=== PATIENT | male | born 1945 | race Caucasian/White ===

== ENCOUNTER → 2018-04-05 13:45 | Outpatient (CLI) | payer MEDICARE, OTHER, SELFPAY ==
--- NOTE | 2018-04-05 | DI.ECHO.S_ITS ---
[facility]---------+ [facility] +---------+ : : [address] : : : : [phone] : : : : Phone: [phone] +---------+ Echocardiogram Report + + :Name: LUIS ANTONIO BAGLEY Study Date: 04/05/2018 Height: 71 in : :[facility] Exam Location: [place] Weight: 284 lb : : Gender: Male BSA: 2.4 m2 : :: 1945 Age: 72 yrs BP: 122/78 mmHg: :Reason For Study: Aortic Stenosis : :Ordering Physician: Ora : :Ravinder Performed By: Yoana Moulton : :Referring: ORA HILL : + + Interpretation Summary The left ventricle is normal in size. The ejection fraction is estimated to be 65-70%. There has been no significant change in LVEF since the previous study. The right ventricle is normal in size and function. The aortic valve is moderately calcified. The peak aortic velocity is 3.55 m/sec. The aortic valve mean gradient is 32 mmHg. The calculated aortic valve area is 1.2 cm2. The peak aortic velocity on the previous exam was 3.7 m/sec. sev ratio: 0.28 There is moderate aortic stenosis. There has been no significant change since the previous study. There is mild to moderate aortic regurgitation. Compared to the prior echo study, there has been an increase in the severity of aortic regurgitation. Procedure: A two-dimensional transthoracic echocardiogram with color flow and Doppler was performed. The study quality was technically adequate. Comparison is made with the echocardiogram of 12/16/2017. Subcostal and suprasternal notch imaging were not obtained due to equiptment malfunction. The patient was in normal sinus rhythm during the exam. Left Ventricle: The left ventricle is normal in size. There is mild-moderate concentric left ventricular hypertrophy. Proximal septal thickening is noted. There is no echo evidence for significant left ventricular outflow tract obstruction. There is no thrombus. The ejection fraction is estimated to be 65-70%. There has been no significant change since the previous study. There are no focal wall motion abnormalities. MV E/A: 0.74 Med Peak E' Bernardo: 4.7 cm/sec E/E' med: 11.7. Diastolic parameters suggest a relaxation abnormality of the left ventricle, consistent with probable normal filling pressures. Right Ventricle: The right ventricle is normal in size and function. Atria: The left atrium is moderately dilated. The right atrium is normal in size. The interatrial septum is intact with no evidence for an atrial septal defect. Mitral Valve: There is mild mitral annular calcification. There is no mitral valve stenosis. There is trace mitral regurgitation. Aortic Valve: The aortic valve is moderately calcified. Leaflet mobility is moderately reduced. The aortic valve is trileaflet. The calculated aortic valve area is 1.2 cm2. The peak aortic velocity is 3.55 m/sec. The aortic valve mean gradient is 32 mmHg. The peak aortic velocity on the previous exam was 3.7 m/sec. There is moderate aortic stenosis. There has been no significant change since the previous study. There is mild to moderate aortic regurgitation. Compared to the prior echo study, there has been an increase in the severity of aortic regurgitation. Tricuspid Valve: The tricuspid valve is normal in structure and function. Pulmonary artery pressures cannot be estimated because of the lack of a measurable TR jet velocity. There is trace tricuspid regurgitation. Pulmonic Valve: The pulmonic valve is not well seen, but is grossly normal. There is trace pulmonic regurgitation. Great Vessels: The aortic root is moderately dilated. This is unchanged compared to the previous study. The ascending aorta is mild-moderately enlarged. There has been no significant change since the previous study. The inferior vena cava was not visualized. Pericardium/ Pleura There is no pericardial effusion. There is an anterior echo-free space consistent with a fat pad. There is no pleural effusion. MMode/2D Measurements & Calculations LVIDd: 5.0 cm LVOT diam: 2.3 cm LVIDs: 3.0 cm Ao root diam: 4.8 cm FS: 41.0 % asc Aorta Diam: 4.2 cm IVSd: 1.7 cm LVPWd: 1.6 cm LV kinsey. diameter/BSA (cm/m^2): 2.0 LV sys. diameter/BSA (cm/m^2): 1.2 LA A2 area: 25.7 cm2 RA long axis: 5.6 cm LA A4 area: 24.2 cm2 RA area: 13.8 cm2 LA length (vol): 5.5 cm RA vol: 28.9 ml LA vol: 96.0 ml RA : 11.8 ml/m2 LA vol index: 39.2 ml/m2 TAPSE: 2.4 cm Doppler Measurements & Calculations Ao V2 max: 355.7 cm/sec LVOT Max Bernardo: 101.9 cm/sec Ao V2 mean: 275.7 cm/sec LV V1 max P.1 mmHg Ao max P.6 mmHg LV V1 VTI: 22.7 cm Ao mean P.3 mmHg LUZMARIA(I,D): 1.2 cm2 Ao V2 VTI: 81.6 cm LUZMARIA(V,D): 1.2 cm2 sev ratio: 0.28 LUZMARIA indexed to BSA (cm^2/m^2): 0.47 AI P1/2t: 406.1 msec AI dec slope: 325.3 cm/sec2 MV E max bernardo: 55.6 cm/sec MV A max bernardo: 75.2 cm/sec MV E/A: 0.74 Med Peak E' Bernardo: 4.7 cm/sec E/E' med: 11.7 Lat Peak E' Bernardo: 6.5 cm/sec E/E' lat: 8.5 E/e' average: 10.1 MV dec time: 0.17 sec Reading Physician:BEBA
== END ==
PROVIDERS: Visit Provider Internal Medicine Cardiovascular Disease
DX: I35.2 Nonrheumatic aortic (valve) stenosis with insufficiency (principal)
CPT/HCPCS: 93306

== ENCOUNTER → 2021-04-08 14:55 | Outpatient (CLI) | payer MEDICARE, OTHER, SELFPAY ==
--- NOTE | 2021-04-08 14:58 | DI.ECHO.S_ITS ---
[facility]---------+ [facility] +---------+ : : [address] : : : : [phone] : : : : Phone: [phone] +---------+ Echocardiogram Report + + :Name: LUIS ANTONIO BAGLEY Study Date: 04/08/2021 Height: 73 in : :[facility] ReadingLocation: Weight: 282 lb : : Gender: Male BSA: 2.5 m2 : :: 1945 Age: 75 yrs BP: 127/73 mmHg: :Reason For Study: AORTIC STENOSIS : :Ordering Physician: LIZ, : :ORA Performed By: Ceci Saab : :Referring: ORA HILL : + + Interpretation Summary The left ventricle is normal in size. The ejection fraction is estimated to be 60-65%. The right ventricle is normal in size and function. The aortic valve is severely calcified. There is moderate to severely reduced leaflet mobility. The peak aortic velocity is 4.17 m/sec. The aortic valve mean gradient is 39.5 mmHg. The calculated aortic valve area is 1.1 cm2. The peak aortic velocity on the previous exam was 3.89 m/sec. sev ratio: 0.22 There is moderate to severe aortic stenosis. Compared to the prior echo study, there has been an increase in the severity of aortic stenosis. There is mild to moderate aortic regurgitation. Compared to the prior echo study, there has been an increase in the severity of aortic regurgitation. The aortic root is mildly dilated. The ascending aorta is mildly enlarged. 3.9 cm in diameter. Previously 4.0 cm. Procedure: A two-dimensional transthoracic echocardiogram with color flow and Doppler was performed. The study quality was technically adequate. Comparison is made with the echocardiogram of 12/12/2019. The patient was in 74-85 during the exam. The patient was in normal sinus rhythm during the exam. Left Ventricle: The left ventricle is normal in size. There is mild concentric left ventricular hypertrophy. There is no thrombus. The ejection fraction is estimated to be 60-65%. There are no focal wall motion abnormalities. Diastolic parameters suggest a relaxation abnormality of the left ventricle, consistent with probable normal filling pressures. Right Ventricle: The right ventricle is normal in size and function. Atria: The left atrium is mildly dilated. The left atrium has mildly decreased in size since the prior echo exam. Right atrial size is normal. There is no Doppler evidence for an interatrial shunt. Mitral Valve: The mitral valve leaflets appear mildly thickened, but open well. There is mild mitral annular calcification. The mitral valve chordae are thickened and/or calcified. There is trace mitral regurgitation. Aortic Valve: There is moderate to severely reduced leaflet mobility. The aortic valve is severely calcified. There is moderate to severe aortic stenosis. The peak aortic velocity is 4.17 m/sec. The aortic valve mean gradient is 39.5 mmHg. The calculated aortic valve area is 1.1 cm2. The peak aortic velocity on the previous exam was 3.89 m/sec. Compared to the prior echo study, there has been an increase in the severity of aortic stenosis. There is mild to moderate aortic regurgitation. Compared to the prior echo study, there has been an increase in the severity of aortic regurgitation. Tricuspid Valve: There is tricuspid annular calcification. There is trace tricuspid regurgitation. Pulmonary artery pressures cannot be estimated because of the lack of a measurable TR jet velocity. Pulmonic Valve: The pulmonic valve leaflets are thin and pliable; valve motion is normal. There is trace pulmonic regurgitation. Great Vessels: The aortic root is mildly dilated. The ascending aorta is mildly enlarged. The IVC is of normal diameter and collapses greater than 50% with a sniff. This suggests a low right atrial pressure of 3 mm Hg. Pericardium/ Pleura There is no pericardial effusion. There is no pleural effusion. MMode/2D Measurements & Calculations LVIDd: 5.8 cm LVOT diam: 2.6 cm LVIDs: 3.8 cm Ao root diam: 4.6 cm FS: 34.9 % asc Aorta Diam: 3.9 cm IVSd: 1.3 cm Ao Arch Diam (Prox Trans): 3.5 cm LVPWd: 1.1 cm LV kinsey. diameter/BSA (cm/m^2): 2.3 LV sys. diameter/BSA (cm/m^2): 1.5 LA A2 area: 27.7 cm2 RA long axis: 6.0 cm LA A4 area: 20.6 cm2 RA area: 18.2 cm2 LA length (vol): 5.7 cm RA vol: 46.6 ml LA vol: 85.8 ml RA : 18.7 ml/m2 LA vol index: 34.4 ml/m2 IVC diam: 1.8 cm RVD1 (basal): 3.3 cm TAPSE: 2.3 cm Doppler Measurements & Calculations Ao V2 max: 412.7 cm/sec LVOT Max Bernardo: 88.3 cm/sec Ao V2 mean: 291.3 cm/sec LV V1 max P.1 mmHg Ao max P.6 mmHg LV V1 VTI: 19.4 cm Ao mean P.5 mmHg LUZMARIA(I,D): 1.2 cm2 Ao V2 VTI: 88.2 cm LUZMARIA(V,D): 1.1 cm2 sev ratio: 0.22 LUZMARIA indexed to BSA (cm^2/m^2): 0.47 AI P1/2t: 526.2 msec AI dec slope: 220.5 cm/sec2 MV E max bernardo: 44.9 cm/sec PA pr(Accel): 34.5 mmHg MV A max bernardo: 84.9 cm/sec MV E/A: 0.53 Med Peak E' Bernardo: 4.2 cm/sec E/E' med: 10.8 MV dec time: 0.40 sec SV(LVOT): 103.6 ml Reading Physician:04:44 PM
== END ==
PROVIDERS: PCP Family Medicine; Referring Provider Internal Medicine Cardiovascular Disease; Visit Provider Internal Medicine Cardiovascular Disease
DX: I35.2 Nonrheumatic aortic (valve) stenosis with insufficiency (principal); I77.810 Thoracic aortic ectasia
CPT/HCPCS: 93306

== ENCOUNTER → 2021-06-05 13:25 | Outpatient (CLI) | payer MEDICARE, OTHER, SELFPAY ==
--- NOTE | 2021-06-05 | DI.ECHO.S_ITS ---
[facility]---------+ [facility] +---------+ : : [address] : : : : [phone] : : : : Phone: [phone] +---------+ Echocardiogram Report + + :Name: LUIS ANTONIO BAGLEY Study Date: 06/05/2021 Height: 73 in : :[facility] : Weight: 280 lb : : Gender: Male BSA: 2.5 m2 : :: 1945 Age: 76 yrs BP: 125/76 mmHg: :Reason For Study: AORTIC STENOSIS : :Ordering Physician: Ora : :[place] Performed By: Ceci Saab : :Referring: ORA HILL : + + Interpretation Summary The left ventricle is normal in size. The ejection fraction is estimated to be 60-65%. No significant change in LVEF. The right ventricle is normal in size and function. 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 The prosthetic aortic valve is well-seated. The peak aortic velocity is 2.93 m/sec. The aortic valve mean gradient is 19 mmHg. The aortic root is mildly dilated. 4.5 cm in diameter. Previously 4.6 cm. The ascending aorta is mildly enlarged. 4.1 cm in diameter. Previously 3.9 cm. Mild atherosclerotic plaque(s) in the aortic arch. Procedure: A two-dimensional transthoracic echocardiogram with color flow and Doppler was performed. The study quality was technically adequate. Comparison is made with the echocardiogram of 04/08/2021. The patient was in sinus rhythm with heart rates between 69-81 bpm during the exam. Left Ventricle: The left ventricle is normal in size. Left ventricular wall thickness is mildly increased. There is no thrombus. The ejection fraction is estimated to be 60-65%. There are no focal wall motion abnormalities. Diastolic parameters suggest a relaxation abnormality of the left ventricle, consistent with probable normal filling pressures. Right Ventricle: The right ventricle is normal in size and function. Atria: The left atrium is mildly dilated. The left atrium has remained unchanged in size since the prior echo exam. Right atrial size is normal. There is no Doppler evidence for an atrial septal defect. Mitral Valve: The mitral valve leaflets appear mildly thickened, but open well. There is mild mitral annular calcification. The mitral valve chordae are thickened and/or calcified. There is trace mitral regurgitation. Aortic Valve: There is a bioprosthetic aortic valve. The prosthetic aortic valve is well-seated. The peak aortic velocity is 2.93 m/sec. The aortic valve mean gradient is 19 mmHg. No aortic regurgitation is present. Tricuspid Valve: The tricuspid valve is normal in structure and function. There is trace tricuspid regurgitation. Pulmonary artery pressures cannot be estimated because of the lack of a measurable TR jet velocity. Pulmonic Valve: The pulmonic valve is not well seen, but is grossly normal. There is trace pulmonic regurgitation. Great Vessels: The aortic root is mildly dilated. The ascending aorta is mildly enlarged. Mild atherosclerotic plaque(s) in the aortic arch. The IVC is of normal diameter and collapses greater than 50% with a sniff. This suggests a low right atrial pressure of 3 mm Hg. Pericardium/ Pleura There is no pericardial effusion. There is no pleural effusion. MMode/2D Measurements & Calculations LVIDd: 5.8 cm LVOT diam: 2.2 cm LVIDs: 3.6 cm Ao root diam: 4.5 cm FS: 37.7 % asc Aorta Diam: 4.1 cm IVSd: 1.2 cm Ao Arch Diam (Prox Trans): 2.8 cm LVPWd: 1.2 cm LV kinsey. diameter/BSA (cm/m^2): 2.3 LV sys. diameter/BSA (cm/m^2): 1.5 LA A2 area: 30.7 cm2 RA long axis: 5.2 cm LA A4 area: 18.6 cm2 RA area: 15.4 cm2 LA length (vol): 5.3 cm RA vol: 38.6 ml LA vol: 91.0 ml RA : 15.6 ml/m2 LA vol index: 36.6 ml/m2 IVC diam: 2.1 cm RVD1 (basal): 3.5 cm TAPSE: 2.5 cm Doppler Measurements & Calculations Ao V2 max: 279.4 cm/sec LVOT Max Bernardo: 125.3 cm/sec Ao V2 mean: 199.9 cm/sec LV V1 max P.3 mmHg Ao max P.3 mmHg LV V1 VTI: 30.1 cm Ao mean P.9 mmHg LUZMARIA(I,D): 1.9 cm2 Ao V2 VTI: 62.7 cm LUZMARIA(V,D): 1.7 cm2 sev ratio: 0.48 LUZMARIA indexed to BSA (cm^2/m^2): 0.75 MV E max bernardo: 77.3 cm/sec PA V2 max: 101.8 cm/sec MV A max bernardo: 94.4 cm/sec PA V2 mean: 65.0 cm/sec MV E/A: 0.82 PA mean P.0 mmHg Med Peak E' Bernardo: 7.8 cm/sec PA pr(Accel): 19.1 mmHg E/E' med: 9.8 Lat Peak E' Bernardo: 6.1 cm/sec E/E' lat: 12.7 E/e' average: 11.3 MV dec time: 0.22 sec SV(LVOT): 117.0 ml Reading Physician:12:43 PM
== END ==
PROVIDERS: PCP Family Medicine; Referring Provider Internal Medicine Cardiovascular Disease; Visit Provider Internal Medicine Cardiovascular Disease
DX: I35.0 Nonrheumatic aortic (valve) stenosis (principal); I77.810 Thoracic aortic ectasia; I70.0 Atherosclerosis of aorta; Z95.2 Presence of prosthetic heart valve
CPT/HCPCS: 93306